=== PATIENT | male | born 1940 | race Caucasian/White ===

== ENCOUNTER 2021-02-26 10:54 | Emergency (ER) | payer MEDICARE ==
[2021-02-26] MEDS ORDERED: HYDROcodone/Acetaminophen 5/325 mg Tablet ONE (13:57)
[2021-02-26] MEDS ORDERED: Ondansetron ODT 4 MG TAB ONE (13:57)
== END 2021-02-26 14:08 | disposition home or self-care (01) ==
LOC: ERS 10:54
DX: S39.012A Strain of muscle, fascia and tendon of lower back, initial encounter (principal); S80.212A Abrasion, left knee, initial encounter; S80.211A Abrasion, right knee, initial encounter; W19.XXXA Unspecified fall, initial encounter
CPT/HCPCS: 72100; Q0162